=== PATIENT | female | born 1970 | race Caucasian/White ===

== ENCOUNTER → 2016-09-22 | Outpatient (CLI) | payer MEDICAID ==
--- NOTE | 2016-09-22 13:50 | RADIOLOGY REPORT PS360 ---
History and Indications: Hyperlipidemia, family history, chest pain, shortness of breath, fatigue and abnormal EKG. Procedure: Patient received 0.4 mg of Lexiscan, resting heart rate was 58 bpm resting blood pressure of 150/80, with Lexiscan maximum heart rate achieved was 98 bpm which is less than 85% of the maximum predicted heart rate and a blood pressure was 134/74. With Lexiscan no symptoms recorded. Electrocardiogram: Resting electrocardiogram showed sinus bradycardia, with Lexiscan there is less than 1.[address] segment depression noted from the baseline EKG. The EKG portion of the Lexiscan Myoview is nondiagnostic. Cardiac stress and resting SPECT images: Cardiac stress and rest SPECT images were obtained using technetium 99 Myoview 10.4 mCi at rest and 31.1 mCi at stress. Gated SPECT further analysis of segmental wall motion and calculation of the ejection fraction also done. Cardiac stress and rest SPECT images show a mild fixed defect in the anterior wall with normal contractility on the gated SPECT is likely secondary to soft tissue attenuation from the breast, no reversible ischemia seen. Computer derived ejection fraction is 63% with no obvious regional wall motion abnormality, right ventricle is normal size and contractility. Conclusion: 1. The EKG portion of the Lexiscan Myoview is nondiagnostic. 2. No obvious scintigraphic evidence of reversible ischemia seen, computer derived ejection fraction is 63% with no obvious regional wall motion abnormality, right ventricle is normal size and contractility.
== END ==
LOC: RAD 06:18
DX: R94.31 Abnormal electrocardiogram [ECG] [EKG] (principal); R06.00 Dyspnea, unspecified; R07.89 Other chest pain; R00.1 Bradycardia, unspecified; I10 Essential (primary) hypertension; E78.5 Hyperlipidemia, unspecified; K21.9 Gastro-esophageal reflux disease without esophagitis; Z72.0 Tobacco use; Z82.49 Family history of ischemic heart disease and other diseases of the circulatory system
CPT/HCPCS: A9502; J2785